=== PATIENT | female | born 1980 | race Caucasian/White ===

== ENCOUNTER 2024-06-29 08:16 | Emergency (ER) | payer BC ==
[~2024-06-29] VITALS: Ht 162.6 cm; Wt 62.6 kg
[2024-06-29 08:24] VITALS: BP 102/74; TEMP 97.9; O2SAT 100
== END 2024-06-29 08:56 | disposition home or self-care (01) ==
LOC: ER 08:27
DX: S09.90XA Unspecified injury of head, initial encounter (principal); R04.0 Epistaxis; R40.0 Somnolence; Z98.890 Other specified postprocedural states; W10.9XXA Fall (on) (from) unspecified stairs and steps, initial encounter; Y93.89 Activity, other specified; Y92.89 Other specified places as the place of occurrence of the external cause; Y99.8 Other external cause status